=== PATIENT | male | born 2000 | race Two or more races ===

== ENCOUNTER 2021-12-12 11:28 | Inpatient (IN) | payer MEDICAID ==
[~2021-12-12] VITALS: Ht 160 cm; Wt 64.1 kg
[2021-12-12] MEDS ORDERED: DexAMETHasone SOD PHOS 10MG/1ML VIAL INJ IM ONE (17:30)
[2021-12-13] MEDS ORDERED: PIPERACILLIN-TAZOB 3.375GM 100 ML IV ONE (03:30)
[2021-12-13] MEDS ORDERED: DexAMETHasone SOD PHOS 10MG/1ML VIAL INJ IV ONE (03:45)
[2021-12-13 04:20] LABS: Basophils # (auto) 0 10 ^3/uL (0-0.2); Basophils % (auto) 0.2 % (0.0-2.0); Eosinophils # (auto) 0 10 ^3/uL (0-0.8); Hematocrit 44.4 % (41.0-53.0); Hemoglobin 15.3 g/dL (13.5-17.5); Lymphocytes # (auto) 2.5 10 ^3/uL (0.4-5.4); Lymphocytes % (auto) 13.8 % (10.0-50.0); Mean Corpuscular Hemoglobin 30.1 pg (28.0-32.0); Mean Corpuscular Hgb Conc. 34.5 g/dL (32.0-36.0); Mean Corpuscular Volume 87.1 fL (80.0-100.0); Monocytes # (auto) 2.2 10 ^3/uL (0-1.3); Monocytes % (auto) 11.9 % (0.0-12.0); Neutrophils # (auto) 13.6 10 ^3/uL (1.6-8.6); Neutrophils % (auto) 74.1 % (37.0-80.0); Red Cell Distribution Width 13.6 % (11.8-14.3); White Blood Cell 18.3 10^3/uL (4.4-10.8)
[2021-12-13 04:39] LABS: Potassium 3.9 mmol/L (3.5-5.1)
[2021-12-13 04:50] LABS: Albumin 4.2 g/dL (3.4-5.0); Bilirubin, Total 0.8 mg/dL (0.2-1.0); CRP High Sensitivity 13.2 mg/dL (< 0.3); Calcium 9.1 mg/dL (8.5-10.1); Total Protein 9.4 g/dL (6.4-8.2)
[2021-12-13] MEDS: SODIUM CHLORIDE 0.9% 1,000 ML IV SCH ×2 (07:45→16:06)
[2021-12-13] MEDS ORDERED: ONDANSETRON HCL 4 MG/2 ML VIAL IV PRN (07:45)
[2021-12-13] MEDS ORDERED: NITROGLYCERIN 0.4 MG SL TAB SL PRN (07:45)
[2021-12-13] MEDS ORDERED: ACETAMINOPHEN 325 MG TAB PO PRN (07:45)
[2021-12-13] MEDS ORDERED: PIPERACILLIN-TAZOB 3.375GM 100 ML IV SCH (07:45)
[2021-12-13] MEDS ORDERED: DOCUSATE SOD 100 MG CAP PO PRN (07:45)
[2021-12-13] MEDS ORDERED: HYDROcodone-ACET 5/325MG TAB PO PRN (07:45)
[2021-12-13] MEDS ORDERED: TEMAZEPAM 15 MG CAP PO PRN (07:45)
[2021-12-13] MEDS ORDERED: MORPHINE SULFATE INJ 2 MG/ml SYRG IV PRN ×2 (07:45)
[2021-12-13] MEDS: ZINC SULFATE 220mg CAP or TAB PO SCH (10:14)
[2021-12-13] MEDS: MULTIPLE VITAMIN TAB PO SCH (10:14)
[2021-12-13] MEDS: ASCORBIC ACID 500 MG TAB PO SCH ×2 (10:14→22:40)
[2021-12-13] MEDS: PANTOPRAZOLE 40 MG TAB PO SCH (10:14)
[2021-12-13] MEDS: ENOXAPARIN SOD 40 MG/0.4 ML SYRINGE SC SCH (10:15)
[2021-12-13] MEDS: PIPERACILLIN-TAZOB 3.375GM 100 ML IV SCH ×2 (10:58→19:36)
[2021-12-13 22:13] VITALS: BP 109/61
[2021-12-14] MEDS: SODIUM CHLORIDE 0.9% 1,000 ML IV SCH ×3 (00:25→19:54)
[2021-12-14] MEDS: PIPERACILLIN-TAZOB 3.375GM 100 ML IV SCH ×3 (04:05→19:55)
[2021-12-14 04:47] VITALS: BP 101/46
[2021-12-14 06:42] LABS: Basophils # (auto) 0 10 ^3/uL (0-0.2); Basophils % (auto) 0.2 % (0.0-2.0); Eosinophils # (auto) 0 10 ^3/uL (0-0.8); Eosinophils % (auto) 0.1 % (0.0-7.0); Hematocrit 40.5 % (41.0-53.0); Hemoglobin 13.5 g/dL (13.5-17.5); Lymphocytes # (auto) 1.3 10 ^3/uL (0.4-5.4); Lymphocytes % (auto) 7.8 % (10.0-50.0); Mean Corpuscular Hgb Conc. 33.3 g/dL (32.0-36.0); Monocytes # (auto) 1.6 10 ^3/uL (0-1.3); Monocytes % (auto) 9.4 % (0.0-12.0); Neutrophils % (auto) 82.5 % (37.0-80.0); Red Blood Cells 4.65 10^6/uL (4.5-5.90); White Blood Cell 16.9 10^3/uL (4.4-10.8)
[2021-12-14 07:02] LABS: Albumin 3.6 g/dL (3.4-5.0); BUN/Creatinine Ratio 18.8; Calcium 8.7 mg/dL (8.5-10.1); Potassium 4.3 mmol/L (3.5-5.1)
[2021-12-14 07:09] LABS: Bilirubin, Total 0.5 mg/dL (0.2-1.0); Total Protein 7.7 g/dL (6.4-8.2)
[2021-12-14 09:00] VITALS: BP 95/46
[2021-12-14] MEDS: ENOXAPARIN SOD 40 MG/0.4 ML SYRINGE SC SCH (10:00)
[2021-12-14] MEDS: ZINC SULFATE 220mg CAP or TAB PO SCH (11:07)
[2021-12-14] MEDS: PANTOPRAZOLE 40 MG TAB PO SCH (11:08)
[2021-12-14] MEDS: MULTIPLE VITAMIN TAB PO SCH (11:08)
[2021-12-14] MEDS: ASCORBIC ACID 500 MG TAB PO SCH ×2 (11:09→22:34)
[2021-12-14 13:00] VITALS: BP 109/52
[2021-12-14 16:44] VITALS: BP 107/60
[2021-12-14 22:00] VITALS: BP 107/65
[2021-12-15] MEDS: SODIUM CHLORIDE 0.9% 1,000 ML IV SCH ×3 (03:21→17:37)
[2021-12-15] MEDS: PIPERACILLIN-TAZOB 3.375GM 100 ML IV SCH ×3 (03:52→20:13)
[2021-12-15 05:00] VITALS: BP 102/60
[2021-12-15 09:00] VITALS: BP 114/59
[2021-12-15] MEDS: ENOXAPARIN SOD 40 MG/0.4 ML SYRINGE SC SCH (10:00)
[2021-12-15] MEDS: PANTOPRAZOLE 40 MG TAB PO SCH (10:17)
[2021-12-15] MEDS: ASCORBIC ACID 500 MG TAB PO SCH ×2 (10:18→21:17)
[2021-12-15] MEDS: ZINC SULFATE 220mg CAP or TAB PO SCH (10:19)
[2021-12-15] MEDS: MULTIPLE VITAMIN TAB PO SCH (10:19)
[2021-12-15 13:00] VITALS: BP 111/59
[2021-12-15 17:00] VITALS: BP 107/57
[2021-12-15 22:00] VITALS: BP 113/71
[2021-12-16] MEDS: SODIUM CHLORIDE 0.9% 1,000 ML IV SCH ×3 (02:43→20:13)
[2021-12-16] MEDS: PIPERACILLIN-TAZOB 3.375GM 100 ML IV SCH ×3 (04:14→20:13)
[2021-12-16 05:00] VITALS: BP 116/72
[2021-12-16 09:00] VITALS: BP 106/68
[2021-12-16] MEDS: ENOXAPARIN SOD 40 MG/0.4 ML SYRINGE SC SCH ×2 (10:00→10:26)
[2021-12-16] MEDS: MULTIPLE VITAMIN TAB PO SCH (10:26)
[2021-12-16] MEDS: PANTOPRAZOLE 40 MG TAB PO SCH (10:26)
[2021-12-16] MEDS: ASCORBIC ACID 500 MG TAB PO SCH ×2 (10:26→21:44)
[2021-12-16] MEDS: ZINC SULFATE 220mg CAP or TAB PO SCH (10:26)
[2021-12-16 13:00] VITALS: BP 108/67
[2021-12-16 17:00] VITALS: BP 102/64
[2021-12-16 21:45] VITALS: BP 113/73
[2021-12-17] MEDS: PIPERACILLIN-TAZOB 3.375GM 100 ML IV SCH ×2 (04:30→11:35)
[2021-12-17 05:00] VITALS: BP 108/62
[2021-12-17] MEDS: SODIUM CHLORIDE 0.9% 1,000 ML IV SCH ×2 (05:05→11:36)
[2021-12-17 06:22] LABS: Basophils # (auto) 0 10 ^3/uL (0-0.2); Basophils % (auto) 0.5 % (0.0-2.0); Eosinophils # (auto) 0.2 10 ^3/uL (0-0.8); Eosinophils % (auto) 1.9 % (0.0-7.0); Hematocrit 39.8 % (41.0-53.0); Hemoglobin 13.5 g/dL (13.5-17.5); Lymphocytes # (auto) 3.3 10 ^3/uL (0.4-5.4); Lymphocytes % (auto) 38.3 % (10.0-50.0); Mean Corpuscular Hemoglobin 29.5 pg (28.0-32.0); Mean Corpuscular Hgb Conc. 33.8 g/dL (32.0-36.0); Mean Corpuscular Volume 87.4 fL (80.0-100.0); Monocytes # (auto) 0.6 10 ^3/uL (0-1.3); Monocytes % (auto) 7.3 % (0.0-12.0); Neutrophils # (auto) 4.5 10 ^3/uL (1.6-8.6); Nucleated Red Blood Cells % 0.2 %; Red Blood Cells 4.56 10^6/uL (4.5-5.90); Red Cell Distribution Width 13.5 % (11.8-14.3); White Blood Cell 8.7 10^3/uL (4.4-10.8)
[2021-12-17 06:29] LABS: Albumin 3.4 g/dL (3.4-5.0); Calcium 8.6 mg/dL (8.5-10.1); Potassium 4.1 mmol/L (3.5-5.1)
[2021-12-17 06:33] LABS: BUN/Creatinine Ratio 14.3
[2021-12-17 06:38] LABS: Bilirubin, Total 0.2 mg/dL (0.2-1.0); Total Protein 7.2 g/dL (6.4-8.2)
[2021-12-17 09:00] VITALS: BP 126/73
[2021-12-17] MEDS: ZINC SULFATE 220mg CAP or TAB PO SCH (09:25)
[2021-12-17] MEDS: PANTOPRAZOLE 40 MG TAB PO SCH (09:26)
[2021-12-17] MEDS: ENOXAPARIN SOD 40 MG/0.4 ML SYRINGE SC SCH (09:26)
[2021-12-17] MEDS: ASCORBIC ACID 500 MG TAB PO SCH (09:26)
[2021-12-17] MEDS: MULTIPLE VITAMIN TAB PO SCH (09:26)
[2021-12-17] MEDS ORDERED: AMOX500T3 PO (11:44)
[2021-12-17 12:34] VITALS: BP 113/59
[2021-12-17 13:00] VITALS: BP 113/59
== END 2021-12-17 12:00 | disposition home or self-care (01) | DRG 720 ==
LOC: ER 11:28 → TELE 12-13 07:37 → UNDOADMIN 12-13 07:37 → TELE 12-13 07:40 → TELE-EAST 12-13 20:08 → UNDODISIN 12-17 13:30
PROVIDERS: ADMIT Nurse Practitioner; ATTEND Nurse Practitioner
DX: A41.9 Sepsis, unspecified organism (principal); I10 Essential (primary) hypertension; K04.7 Periapical abscess without sinus; L03.211 Cellulitis of face; Z20.822 Contact with and (suspected) exposure to COVID-19; R51.9 Headache, unspecified; R22.0 Localized swelling, mass and lump, head
CPT/HCPCS: 36415; 70486; 80053; 85025; 86141; 87077; 87205; 93005; 96365; 96366; 96367; 96372; 96375; G0378; J1100; J2543